=== PATIENT | male | born 1950 | race Caucasian/White ===

== ENCOUNTER → 2020-04-08 | Outpatient (CLI) | payer MEDICARE, OTHER ==
[~2020-04-08] MED LIST: ASPI81TA45 PO; CHOL10003 PO; FENTANYL PF 250 MCG/5ML ONE; GEMF600T8 PO; LOSA1TAB19 PO; TURM500C4 PO
[2020-04-08 09:36] LABS: BASOPHILS # (AUTO) 0.04 x10^3/uL (0-0.1); BASOPHILS % (AUTO) 1 % (0-1); EOSINOPHILS # (AUTO) 0.22 x10^3/uL (0-0.4); EOSINOPHILS % (AUTO) 3 % (1-7); LYMPHOCYTES # (AUTO) 1.34 x10^3/uL (1-3.4); LYMPHOCYTES % (AUTO) 18 % (22-44); MD NO; MEAN CORPUSCULAR HEMOGLOBIN 31.2 pg (27.5-34.5); MEAN CORPUSCULAR HGB CONC 33.9 g/dL (33.2-36.2); MEAN PLATELET VOLUME 6.5 fL (7.4-10.4); MONOCYTES # (AUTO) 0.57 x10^3/uL (0.2-0.8); MONOCYTES % (AUTO) 8 % (2-9); NEUTROPHILS # (AUTO) 5.12 x10^3/uL (1.8-6.8); NEUTROPHILS % (AUTO) 70 % (42-75); PLATELET COUNT 317 x10^3/uL (130-400); RED CELL DISTRIBUTION WIDTH 13.2 % (9.4-14.8)
[2020-04-08 09:41] LABS: MICROSCOPIC INDICATED
[2020-04-08 09:45] LABS: INTERNATIONAL NORMALIZED RATIO 1.07 (0.93-1.1)
[2020-04-08 09:49] LABS: ANION GAP 5 mmol/L (5-15); CALCIUM 9.4 mg/dL (8.5-10.1); CHLORIDE 105 mmol/L (98-107)
[2020-04-08 09:51] LABS: ALANINE AMINOTRANSFERASE 20 U/L (12-78); ALKALINE PHOSPHATASE 59 U/L (45-117); BILIRUBIN,TOTAL 1.7 mg/dL (0.2-1.0); CREATININE 0.97 mg/dL (0.7-1.3)
== END | disposition home or self-care (01) ==
LOC: STAR 08:23
PROVIDERS: ATTEND Urology
DX: Z01.818 Encounter for other preprocedural examination (principal); Z20.828 Contact with and (suspected) exposure to other viral communicable diseases; N35.919 Unspecified urethral stricture, male, unspecified site
CPT/HCPCS: 36415; 80053; 81001; 85025; 85610; 87077; 87086; 87186; 87635; 93005

== ENCOUNTER 2020-04-12 12:22 | Day surgery (SDC) | payer MEDICARE, OTHER ==
[~2020-04-12] VITALS: Ht 182.9 cm; Wt 95.1 kg
[~2020-04-12 12:22] MED LIST changes: -FENTANYL PF 250 MCG/5ML ONE
[2020-04-12] MEDS ORDERED: LACTATED RINGERS 1,000 ML IV SCH (12:42)
[2020-04-12] MEDS ORDERED: CHLORHEXIDINE 15 ML UDC ONE (12:53)
[2020-04-12] MEDS ORDERED: CHLORHEXIDINE 15 ML UDC MM ONE (13:00)
[2020-04-12] MEDS ORDERED: FENTANYL PF 250 MCG/5ML ONE (14:44)
[2020-04-12] MEDS ORDERED: ONDANSETRON 2MG/ML, 2ML ONE (14:52)
[2020-04-12] MEDS ORDERED: PROPOFOL 10 MG/ML, 100ML IV ONE (14:52)
[2020-04-12] MEDS ORDERED: DEXAMETHASONE 4 MG/ML, 1ML ONE (14:52)
[2020-04-12] MEDS ORDERED: CEFAZOLIN 1,000 MG ONE (14:52)
[2020-04-12] MEDS ORDERED: SUCCINYLCHOLINE 20 MG/ML, 10ML ONE (14:52)
== END 2020-04-12 17:00 | disposition home or self-care (01) ==
LOC: OUT 12:22
PROVIDERS: ATTEND Urology
DX: N35.812 Other bulbous urethral stricture, male (principal); N52.9 Male erectile dysfunction, unspecified; N40.1 Benign prostatic hyperplasia with lower urinary tract symptoms; I10 Essential (primary) hypertension; Z88.1 Allergy status to other antibiotic agents; Z88.8 Allergy status to other drugs, medicaments and biological substances; Z91.030 Bee allergy status; Z98.890 Other specified postprocedural states; Z79.82 Long term (current) use of aspirin; Z79.899 Other long term (current) drug therapy; Z72.89 Other problems related to lifestyle; Z87.891 Personal history of nicotine dependence; Z82.49 Family history of ischemic heart disease and other diseases of the circulatory system
CPT/HCPCS: 52276; J0330; J0690; J1100; J2405; J2704; J3010; J7120

== ENCOUNTER 2020-09-01 08:55 | Outpatient (CLI) | payer MEDICARE ==
[~2020-09-01 08:55] MED LIST changes: +GEMF-31 PO; -GEMF600T8 PO
== END 2020-09-01 23:59 | disposition home or self-care (01) ==
LOC: CARD 08:55
PROVIDERS: ATTEND Psychiatry & Neurology Neurology
DX: R56.9 Unspecified convulsions (principal)
CPT/HCPCS: 95819

== ENCOUNTER 2020-10-08 08:04 | Emergency (ER) | payer MEDICARE ==
[~2020-10-08] VITALS: Ht 182.9 cm; Wt 100.0 kg
[2020-10-08] MEDS ORDERED: LORazepam 2 MG/ML, 1ML ONE (08:13)
--- NOTE | 2020-10-08 08:19 | NUR ---
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 PER EMS SPOUSE REPORT HEARING PT FALL FROM OTHER ROOM THEN SEEING PT HAVE SEIZURE. PER SPOUSE PT HAS HAD 1 SEIZURE IN JUNE FOR WHICH THEY SEE DR.LOUIE JACQUES FOR. HAD EEG IN AUGUST. PT A&OX2 ORIENTED TO SELF AND YEAR ONLY. VSS, NADN. SEIZURE PRECAUTIONS IN PLACE. FAMILY AT BEDSIDE.
[2020-10-08 08:37] LABS: BASOPHILS % (AUTO) 1 % (0-1); EOSINOPHILS % (AUTO) 2 % (1-7); LYMPHOCYTES % (AUTO) 16 % (22-44); MEAN CORPUSCULAR HEMOGLOBIN 31.1 pg (27.5-34.5); MEAN CORPUSCULAR HGB CONC 34.9 g/dL (33.2-36.2); MEAN PLATELET VOLUME 6.8 fL (7.4-10.4); MONOCYTES % (AUTO) 6 % (2-9); NEUTROPHILS % (AUTO) 75 % (42-75); PLATELET COUNT 296 x10^3/uL (130-400); RED BLOOD COUNT 4.94 x10^6/uL (4.38-5.82); RED CELL DISTRIBUTION WIDTH 13.5 % (9.4-14.8)
[2020-10-08 08:48] LABS: ANION GAP 9 mmol/L (5-15); CALCIUM 8.9 mg/dL (8.5-10.1); CHLORIDE 108 mmol/L (98-107)
[2020-10-08 08:51] LABS: ALANINE AMINOTRANSFERASE 24 U/L (12-78); ALKALINE PHOSPHATASE 56 U/L (45-117); CREATININE 1.07 mg/dL (0.7-1.3); TOTAL PROTEIN 6.6 g/dL (6.4-8.2)
--- NOTE | 2020-10-08 09:13 | NUR ---
PT RESTING ON GURNEY W/ CALL LIGHT IN REACH AND SIDE RAILS UPX2. SEIZURE PRECAUTIONS IN PLACE, FAMILY AT BEDSIDE. RESP EVEN AND UNLABORED, IDALIA.
[2020-10-08 09:48] LABS: MD SCAN
--- NOTE | 2020-10-08 10:04 | NUR ---
PT NOW A&OX4, VSS, NADN. PT RESTING ON GURNEY W/ CALL LIGHT IN REACH, SIDE RAILS UPX2, SEIZURE PRECAUTIONS IN PLACE AND FAMILY AT BEDSIDE. [facility] [place] [facility]
[2020-10-08] MEDS ORDERED: LEVETIRACETAM 500 MG in SODIUM CHLORIDE 0.9% 100 ML IV ONE (10:30)
--- NOTE | 2020-10-08 11:37 | NUR ---
PT RESTING ON GURNEY W/ SEIZURE PRECAUTIONS IN PLACE AND FAMILY AT BEDSIDE. RESP EVEN AND UNLABORED,
[2020-10-08 12:08] VITALS: BP 132/72
--- NOTE | 2020-10-08 12:16 | NUR ---
PT PROVIDED W/ MEAL TRAY OK PER . RESTING ON GURNEY W/ CALL LIGHT IN REACH AND FAMILY AT BEDSIDE. VSS, NADN. DENIES FURTHER NEEDS AT THIS TIME.
--- NOTE | 2020-10-08 12:50 | NUR ---
Patient given discharge instructions and they have confirmed that they understand the instructions. Patient ambulatory with steady gait.
== END 2020-10-08 12:51 | disposition home or self-care (01) ==
LOC: ED 10:58
DX: R56.9 Unspecified convulsions (principal); R51.9 Headache, unspecified
CPT/HCPCS: 36415; 70450; 80053; 80320; 85025; 93005; 96365; 99285; J1953; G0480